=== PATIENT | male | born 1975 | race Caucasian/White ===

== ENCOUNTER 2021-01-22 14:58 | Emergency (ER) | payer BC ==
[2021-01-23 23:08] LABS: SARS-CoV-2 NAA Detected (Not Detected)
== END 2021-01-22 17:10 | disposition home or self-care (01) ==
LOC: JVIRT 14:58
DX: Z20.822 Contact with and (suspected) exposure to COVID-19 (principal)
CPT/HCPCS: C9803; Q3014-GT; U0003; U0005